=== PATIENT | male | born 1960 | race Caucasian/White ===

== ENCOUNTER 2017-10-28 09:24 | Day surgery (SDC) | payer OTHER ==
[~2017-10-28] VITALS: Ht 165.1 cm; Wt 109.8 kg
[2017-10-28] MEDS ORDERED: ATOR10TA PO (11:50)
[2017-10-28] MEDS ORDERED: METF1000 PO (11:50)
[2017-10-28] MEDS ORDERED: GLIM2TAB PO (11:50)
[2017-10-28] MEDS ORDERED: ASPI81CT89 PO (11:50)
[2017-10-28] MEDS ORDERED: ATEN25TA7 PO (11:50)
[2017-10-28] MEDS ORDERED: VAS10 PO (11:50)
[2017-10-28] MEDS ORDERED: ORE25 PO (11:50)
[2017-10-28] MEDS ORDERED: LIDOCAINE 2% 100 MG/5 ML UJET TP ONE (13:46)
[2017-10-28] MEDS ORDERED: KETOROLAC 30 MG/ML VIAL ONE (13:46)
== END 2017-10-28 14:30 | disposition home or self-care (01) ==
LOC: MDS 09:24 → MMU 09:37 → MDS 14:30
PROVIDERS: ATTEND Internal Medicine Gastroenterology
DX: D12.6 Benign neoplasm of colon, unspecified (principal); K57.30 Diverticulosis of large intestine without perforation or abscess without bleeding; I10 Essential (primary) hypertension; E11.9 Type 2 diabetes mellitus without complications; E78.5 Hyperlipidemia, unspecified; Z68.41 Body mass index [BMI] 40.0-44.9, adult; E66.9 Obesity, unspecified; Z98.890 Other specified postprocedural states; Z79.82 Long term (current) use of aspirin; Z79.899 Other long term (current) drug therapy
CPT/HCPCS: 45385; 82948; J1885